=== PATIENT | male | born 1985 | race Caucasian/White ===

== ENCOUNTER 2023-02-11 11:17 | Observation (INO) | payer MEDICAID, SELFPAY ==
[2023-02-11 11:18] VITALS: BP 132/102; PULSE 68; RESP 18; TEMP 36.1; O2SAT 100; BMI 29.7
--- NOTE | 2023-02-11 11:55 | EX.ED.DYSGE1 ---
HPI <ADRIANNE Kowalski - Last Filed: 02/11/23 12:53> History of Present Illness Chief Complaint: Substance Abuse Narrative Narrative: Patient is a 38-year-old male with history of anxiety, depression, fentanyl abuse. Patient has been abusing fentanyl for multiple years however this last that has been 6 to 8 months. He was currently at a detox facility in [facility] however he left because he did not receive his daily medications. He is on Subutex, Seroquel, Lyrica. Patient was brought here by his PCPs office. Patient uses tobacco however denies any alcohol abuse, denies any other drug use, denies any marijuana or cocaine. He is here for detox. He denies any significant symptoms at this time. Patient last use was last evening. He usually snorts fentanyl twice a day. PFSH <ADRIANNE Kowalski - Last Filed: 02/11/23 12:53> [facility] Home Medications pregabalin 150 mg capsule (Lyrica) 150 mg PO TID 02/11/23 [History Last Taken Unknown] quetiapine 50 mg tablet (Seroquel) 50 mg PO QHS 02/11/23 [History Last Taken Unknown] Allergy/AdvReac Type Severity Reaction Status Date / Time No Known Allergies Allergy Verified 02/11/23 11:19 Social History Smoking Status: Current every day smoker tobacco type: cigarettes ROS <ADRIANNE Kowalski - Last Filed: 02/11/23 12:53> ROS ED ROS Narrative Constitutional: Negative for fever, chills, weight loss, weakness Eyes: Negative for vision loss, vision change, double vision ENT: Negative for any sore throat, ear pain, congestion Cardiovascular: Negative for any chest pain, tightness, palpitations Respiratory: Negative for any cough, sputum production, hemoptysis, dyspnea, dyspnea on exertion, orthopnea Gastrointestinal: Negative for any abdominal pain, vomiting, diarrhea, constipation, blood in stool, blood in vomit. Positive nausea : Negative for any urinary frequency, dysuria, retention, blood in urine Muscle skeletal: Negative for any muscle joint pain, stiffness, arthralgias, neck pain, back pain. Positive feeling of myalgias Neurological: Negative for any headache, syncope, numbness or tingling, dizziness Skin: Negative for any rashes, lumps, itching, abrasions, lacerations Psychiatric: Negative for any depression, anxiety, stress, suicidal ideation, homicidal ideation Hematologic: Negative for any easy bruising, excessive bruising, easy bleeding Allergies: Negative for any eczema, hives, rash EXAM <ADRIANNE Kowalski - Last Filed: 02/11/23 12:53> Physical Exam Narrative Exam Narrative: Vital signs reviewed. Patient appears generally well. Patient appears slightly anxious however is in no distress. HEET: Head normocephalic atraumatic, TMs clear bilaterally. Posterior pharynx is clear, moist mucous membranes. Nares clear bilaterally. Neck: Supple with no lymphadenopathy or tenderness. No signs of meningismus, negative jolt sign. Cardiac: Regular rate and rhythm no murmurs gallops or rubs, equal peripheral pulses bilaterally. Respiratory: Lungs clear to auscultation bilaterally. No chest tenderness. Abdomen: Soft, nontender, nondistended. No abdominal bruit or pulsatile masses. No hepatosplenomegaly Extremities: No peripheral edema, no signs of gross trauma or deformity. Active full range of motion of all extremities. Neuro: Cranial nerves II through XII intact, no focal neurological deficits. Skin: Clean dry and intact with no rash, purpura, petechiae, vesicles or pustules. Backs/flank: No CVA tenderness, no midline spinal tenderness, no deformity. Psych: Normal mood and affect. No SI, HI or acute psychosis. Const Vital Signs: 02/11/23 11:18 Temperature 97 F L Temperature Source Temporal Pulse Rate 68 Respiratory Rate 18 Blood Pressure 132/102 H Blood Pressure Mean 112 Pulse Ox 100 Oxygen Delivery Method Room Air Positive well nourished and well developed General Appearance ED: well developed <Dr. Albert Casillas, DO - Last Filed: 02/11/23 13:23> Physical Exam Const Vital Signs: 02/11/23 11:18 Temperature 97 F L Temperature Source Temporal Pulse Rate 68 Respiratory Rate 18 Blood Pressure 132/102 H Blood Pressure Mean 112 Pulse Ox 100 Oxygen Delivery Method Room Air MDM <ADRIANNE Kowalski - Last Filed: 02/11/23 12:53> [facility] Lab Data Labs: Laboratory Results - last 24 hr 02/11/23 02/11/23 02/11/23 11:50 11:50 11:50 WBC 7.9 RBC 5.44 Hgb 15.2 Hct 46.8 MCV 86.0 MCH 27.9 MCHC 32.5 RDW Std Deviation 41.6 RDW Coeff of Brandee 13.3 Plt Count 234 MPV 9.6 Immature Gran % (Auto) 1.000 H Neut % (Auto) 49.2 Lymph % (Auto) 41.0 Kimball % (Auto) 5.3 Eos % (Auto) 2.9 Baso % (Auto) 0.6 Absolute Neuts (auto) 3.9 Absolute Lymphs (auto) 3.24 Nucleated RBC % 0 Sodium 139 Potassium 3.5 Chloride 106 Carbon Dioxide 26.0 Anion Gap 7 BUN 15 Creatinine 0.94 Estim Creat Clear Calc 127.35 Est GFR (MDRD) Af Amer 116 Est GFR (MDRD) Non-Af 96 BUN/Creatinine Ratio 16.0 Glucose 123 H Calcium 9.1 Urine Opiates Screen POSITIVE H Urine Methadone Screen NEGATIVE Ur Barbiturates Screen NEGATIVE Ur Phencyclidine Scrn NEGATIVE Ur Amphetamines Screen NEGATIVE MDMA (Ecstasy) Screen POSITIVE H U Benzodiazepines Scrn POSITIVE H Urine Cocaine Screen POSITIVE H U Cannabinoids Screen NEGATIVE Ur Drug Screen Comment Ethyl Alcohol 02/11/23 12:55 WBC RBC Hgb Hct MCV MCH MCHC RDW Std Deviation RDW Coeff of Brandee Plt Count MPV Immature Gran % (Auto) Neut % (Auto) Lymph % (Auto) Kimball % (Auto) Eos % (Auto) Baso % (Auto) Absolute Neuts (auto) Absolute Lymphs (auto) Nucleated RBC % Sodium Potassium Chloride Carbon Dioxide Anion Gap BUN Creatinine Estim Creat Clear Calc Est GFR (MDRD) Af Amer Est GFR (MDRD) Non-Af BUN/Creatinine Ratio Glucose Calcium Urine Opiates Screen Urine Methadone Screen Ur Barbiturates Screen Ur Phencyclidine Scrn Ur Amphetamines Screen MDMA (Ecstasy) Screen U Benzodiazepines Scrn Urine Cocaine Screen U Cannabinoids Screen Ur Drug Screen Comment Ethyl Alcohol 5.0 Treatment and Re-Evaluation :: Patient appears generally well, patient appears nontoxic, vital signs are stable. Patient presents to the emergency department for detox from fentanyl. Patient states he uses fentanyl snorting twice a day. Patient has never been to this detox center. Patient was brought over by his PCPs office. He has been using fentanyl for last 6 to 8 months. Patient will receive basic laboratory eval as well as a urine drug screen. Patient at this time feels generally comfortable. He does feel slightly anxious. I did speak with the patient regarding the contract that he signed, as well as the ramifications if he does leave before treatment is finished. He verbally understands. Patient CBC, chemistries were unremarkable. Patient's toxicology revealed positive for opiates which he does snort fentanyl. However he was therefore ecstasy, benzodiazepines as well as cocaine. I did speak with hospitalist regarding admission. He is excepted. Patient stable for admission <Dr. Albert Casillas, DO - Last Filed: 02/11/23 13:23> MDM MDM Narrative Medical decision making narrative: I have personally performed a face to face assessment of the patient and have reviewed the HOSSEIN Note. I performed a substantive portion of the visit including all aspects of the following. My mckeon findings include: History: Patient presents requesting detox from opiates. Patient states he uses fentanyl. Patient states he snorts it. Patient denies any IV drug use. Patient denies any nausea or vomiting. Patient denies any tremors or palpitations. Patient denies any seizures. Patient states he uses 1/2 to 1 g/day. Patient states his last use was last evening. Patient denies any suicidal or homicidal ideations. Exam: Vital signs are stable. Patient is afebrile. Patient is in no acute distress. Oral mucosa is pink and moist. Neck is supple. Trachea is midline. There is no JVD or lymphadenopathy. Heart was regular rate and rhythm. Lungs are clear and equal bilaterally. Abdomen is soft. Bowel sounds are normal. There is no tenderness. Cranial nerves II through XII are intact. There are no focal motor or sensory deficits noted. Medical Decision Making: Basic screening labs will be obtained for medical clearance. CBC will be obtained to assess for leukocytosis and anemia. Basic metabolic profile will be obtained to assess for electrolyte abnormality and renal function. Urine tox screen will be obtained to assess for substance abuse. Serum alcohol level will be obtained to assess for alcohol intoxication. CBC was reviewed and was within normal limits. Basic metabolic profile was reviewed and was within normal limits. Serum alcohol level was reviewed and was normal at 5.0. Urine tox screen was reviewed and was positive for opiates, MDMA, cocaine, and benzodiazepines. Case was discussed with the hospitalist. He will admit the patient to his service for detox. Patient understood and was agreeable with the plan. All questions were answered. Lab Data Attestation: I reviewed the patient's lab results. Labs: Laboratory Results - last 24 hr 02/11/23 02/11/23 02/11/23 11:50 11:50 11:50 WBC 7.9 RBC 5.44 Hgb 15.2 Hct 46.8 MCV 86.0 MCH 27.9 MCHC 32.5 RDW Std Deviation 41.6 RDW Coeff of Brandee 13.3 Plt Count 234 MPV 9.6 Immature Gran % (Auto) 1.000 H Neut % (Auto) 49.2 Lymph % (Auto) 41.0 Kimball % (Auto) 5.3 Eos % (Auto) 2.9 Baso % (Auto) 0.6 Absolute Neuts (auto) 3.9 Absolute Lymphs (auto) 3.24 Nucleated RBC % 0 Sodium 139 Potassium 3.5 Chloride 106 Carbon Dioxide 26.0 Anion Gap 7 BUN 15 Creatinine 0.94 Estim Creat Clear Calc 127.35 Est GFR (MDRD) Af Amer 116 Est GFR (MDRD) Non-Af 96 BUN/Creatinine Ratio 16.0 Glucose 123 H Calcium 9.1 Urine Opiates Screen POSITIVE H Urine Methadone Screen NEGATIVE Ur Barbiturates Screen NEGATIVE Ur Phencyclidine Scrn NEGATIVE Ur Amphetamines Screen NEGATIVE MDMA (Ecstasy) Screen POSITIVE H U Benzodiazepines Scrn POSITIVE H Urine Cocaine Screen POSITIVE H U Cannabinoids Screen NEGATIVE Ur Drug Screen Comment Ethyl Alcohol 02/11/23 12:55 WBC RBC Hgb Hct MCV MCH MCHC RDW Std Deviation RDW Coeff of Brandee Plt Count MPV Immature Gran % (Auto) Neut % (Auto) Lymph % (Auto) Kimball % (Auto) Eos % (Auto) Baso % (Auto) Absolute Neuts (auto) Absolute Lymphs (auto) Nucleated RBC % Sodium Potassium Chloride Carbon Dioxide Anion Gap BUN Creatinine Estim Creat Clear Calc Est GFR (MDRD) Af Amer Est GFR (MDRD) Non-Af BUN/Creatinine Ratio Glucose Calcium Urine Opiates Screen Urine Methadone Screen Ur Barbiturates Screen Ur Phencyclidine Scrn Ur Amphetamines Screen MDMA (Ecstasy) Screen U Benzodiazepines Scrn Urine Cocaine Screen U Cannabinoids Screen Ur Drug Screen Comment Ethyl Alcohol 5.0 Discharge Plan Dx/Rx/DC Orders Clinical Impression: Opiate abuse, continuous, Polypharmacy, History of depression Disposition Disposition: Acute Care Hospital [facility]
[2023-02-11 12:17] LABS: Absolute Lymphocyte Count 3.24 X10^3/uL (0.83-4.51); Absolute Neutrophil Count 3.9 X10^3/uL (2.0-7.7); Basophil# 0.05 X10^3/uL; Basophil% 0.6 % (0-1); Eosinophil# 0.23 X10^3/uL; Eosinophils% 2.9 % (0-5); Hematocrit 46.8 % (40-54); Hemoglobin 15.2 g/dL (13.0-16.5); Lymphocyte # 3.24 X10^3/ul (0.83-4.51); Mean Corp Hgb Conc 32.5 g/dL (32-36); Mean Corpuscular Hgb 27.9 pg (27.0-32.0); Mean Platelet Vol. 9.6 fl (6.2-12.0); Monocyte# 0.42 X10^3/uL; Monocyte% 5.3 % (0-10); NRBC Flagged by Analyzer 0 % (0-5); Neutrophil # 3.89 X10^3/uL (2.7-7.7); Neutrophil % 49.2 % (47-70); Platelet Count 234 K/mm3 (150-450); RBC Distribution Width CV 13.3 % (11.6-14.6); RBC Distribution Width SD 41.6 fl (35.1-43.9); Red Blood Count 5.44 M/mm3 (4.6-6.2); White Blood Count 7.9 K/mm3 (4.4-11.0)
[2023-02-11 12:27] LABS: Anion Gap 7 (5-15); BUN 15 mg/dL (7-18); Calcium,Total 9.1 mg/dL (8.5-10.1); Chloride 106 mmol/L (98-107); Creatinine, Serum 0.94 mg/dL (0.70-1.30); EST Glomerular Filtration Rate 96 mL/min (>60); Est Glom Filt Rate - Afr Amer 116 mL/min (>60); Estimated Creatinine Clearance 127.35 ml/min; Glucose 123 mg/dL (74-106); Potassium 3.5 mmol/L (3.5-5.1); Sodium Level 139 mmol/L (136-145)
[2023-02-11 12:38] LABS: Amphetamine Urine VISTA NEGATIVE (<1000 ng/mL); Barbiturate Urine VISTA NEGATIVE (< 200 ng/mL); Benzodiazepine Urine VISTA POSITIVE (< 200 ng/mL); Cocaine Urine VISTA POSITIVE (< 300 ng/mL); Ecstacy Urine VISTA POSITIVE (< 500 ng/mL); Methadone Urine VISTA NEGATIVE (< 300 ng/mL); PCP Urine VISTA NEGATIVE (< 25 ng/mL); THC Urine VISTA NEGATIVE (< 50 ng/mL); Vista UDS pH Range 5
--- NOTE | 2023-02-11 12:57 | PCM.HP.STD ---
[facility] - General General Date of Admission: 02/11/23 Date of Service: 02/11/23 Chief Complaint: Came to ED for opioid detox. Polysubstance use. HPI Narrative LIZZIE CASSIDY, is a 38 M with history of polysubstance use, fentanyl, benzodiazepine, crack cocaine, smoking cigarettes came to ED for detox help. Patient currently denies any withdrawal symptoms including tremor, sweating, yawning, hallucinations but he has mild pressured speech. He is not having abnormal behavior. Patient states he snorts 4 to 5 g of fentanyl. Prior to 1616 he was using IV fentanyl and opioids. Denies history of hep C hep B and HIV. Patient also admits that he uses crack cocaine once or twice a month. He takes benzodiazepines, Xanax 2 to 4 mg once or twice a week. He states he does not withdrawal from benzodiazepine. Smokes cigarettes 1 pack/day. Past medical history: ADHD anxiety and depression: Patient on Lyrica and quetiapine. He is also on Subutex. Denies history of hypertension diabetes mellitus. Social history: Polysubstance use as mentioned above. Family history: His father was alcoholic. His elder sister and younger sister both have substance use history. [facility] Home Medications pregabalin 150 mg capsule (Lyrica) 150 mg PO TID 02/11/23 [History Last Taken Unknown] quetiapine 50 mg tablet (Seroquel) 50 mg PO QHS 02/11/23 [History Last Taken Unknown] Allergy/AdvReac Type Severity Reaction Status Date / Time No Known Allergies Allergy Verified 02/11/23 11:19 Social History Smoking Status: Current every day smoker tobacco type: cigarettes ROS ROS Narrative Constitutional: Fast speech. HEENT: Reports systems reviewed and no addt'l complaints, except as documented Respiratory/Chest: Denies chest pain, shortness of breath at rest or with exertion CVS: Denies IA/coronary artery disease. Gastrointestinal: Denies coffee ground emesis, hematemesis or vomiting Genitourinary: Denies burning urination or new urinary tract symptoms Musculoskeletal: Denies joint pain and limited range of motion Neurologic: Denies seizure-like activity. No abnormal movements. No stroke like symptoms. Psychiatry: ADHD, anxiety and depression skin: No ulcer. No rash Endocrinology: Reports systems reviewed and no addt'l complaints, except as documented Hematologic/Lymphatic: Reports systems reviewed and no addt'l complaints, except as documented Rest 14 ROS are negative except as mentioned in HPI Vital Signs Vital Signs Vital Signs: 02/11/23 11:18 Temperature 97 F L Temperature Source Temporal Pulse Rate 68 Respiratory Rate 18 Blood Pressure 132/102 H Blood Pressure Mean 112 Pulse Ox 100 Oxygen Delivery Method Room Air Weight Weight: 238 lb Body Mass Index (BMI) 29.7 Physical Exam Narrative Physical exam General: Alert, Oriented x3, Cooperative HEENT: Mild redness along the floor of the nasal cavity. Atraumatic, PERRLA, EOMI, Normocephalic Oral: Oral mucosa dry. No Gingival or Mucosal Lesions/ Ulcerations Neck: Supple, No JVD, Negative Carotid Bruits Lungs: Air entry diminished in bilateral lung bases. No crepitation/rhonchi Cardiovascular: Regular rate, Regular Rhythm, Normal S1, Normal S2, No murmurs Abdomen: Bowel Sounds Present, Soft, Non Tender, Non-Distended : No renal angle tenderness. No suprapubic tenderness. Extremities: No edema, Capillary Refill Less than 3 Seconds Skin: No rashes, No breakdown Musculoskeletal: No Tenderness to Palpation of Joints or Extremities. ROM intact. Neurological: Cranial nerves II-XII grossly intact, DTR 2+/4 and Symmetrical, Neuro grossly intact Psych/Mental Status: Pressured speech. Mild restlessness. Results Lab / Micro Data Result Diagrams: 02/11/23 11:50 02/11/23 11:50 Labs: Laboratory Results - last 24 hr 02/11/23 11:50: WBC 7.9, RBC 5.44, Hgb 15.2, Hct 46.8, MCV 86.0, MCH 27.9, MCHC 32.5, RDW Std Deviation 41.6, RDW Coeff of Brandee 13.3, Plt Count 234, MPV 9.6, Immature Gran % (Auto) 1.000 H, Neut % (Auto) 49.2, Lymph % (Auto) 41.0, Latimer % (Auto) 5.3, Eos % (Auto) 2.9, Baso % (Auto) 0.6, Absolute Neuts (auto) 3.9, Absolute Lymphs (auto) 3.24, Nucleated RBC % 0 02/11/23 11:50: Sodium 139, Potassium 3.5, Chloride 106, Carbon Dioxide 26.0, Anion Gap 7, BUN 15, Creatinine 0.94, Estim Creat Clear Calc 127.35, Est GFR (MDRD) Af Amer 116, Est GFR (MDRD) Non-Af 96, BUN/Creatinine Ratio 16.0, Glucose 123 H, Calcium 9.1 02/11/23 11:50: Urine Opiates Screen POSITIVE H, Urine Methadone Screen NEGATIVE, Ur Barbiturates Screen NEGATIVE, Ur Phencyclidine Scrn NEGATIVE, Ur Amphetamines Screen NEGATIVE, MDMA (Ecstasy) Screen POSITIVE H, U Benzodiazepines Scrn POSITIVE H, Urine Cocaine Screen POSITIVE H, U Cannabinoids Screen NEGATIVE, Ur Drug Screen Comment Assessment & Plan Assessment/Plan (1) Opiate abuse, continuous: PLAN: Plan This 30-year-old gentleman is being admitted for medical stabilization of acute opioid withdrawal syndrome with history of chronic opioid use disorder. 1. Acute opioid withdrawal syndrome with history of chronic opioid use disorder, relapse, dependence and tolerance: Patient was on the [facility] detox facility and he relapsed. Patient is being admitted to [facility] floor for medical stabilization of withdrawal symptoms. CINA and COWS monitoring. The patient is started on buprenorphine along with other adjunctive medications as needed for medical stabilization as per order set of opioid withdrawal syndrome.Patient also on hydroxyzine, gabapentin as needed ordered. consumer marketing manager consult. His home medications quetiapine and pregabalin continued. Liver chemistry ordered. 2. Chronic benzodiazepine use disorder and dependence: Patient is still does not withdrawal from benzodiazepines. Usually is Xanax 2 to 4 mg once or twice a week. Monitor clinically for benzodiazepine withdrawal including flashbacks, hallucination, seizures, weird dreams/nightmares. 3. Other polysubstance use disorder including crack cocaine and MDMA: U tox positive for opioids, ecstasy, benzodiazepine and cocaine. Patient counseled to quit polysubstance use. 4. Chronic nicotine use/cigarette smoking: Patient is smokes a pack per day since age of 18. Nicotine transdermal patch. VTE prophylaxis low risk: Active ambulation encouraged. Advance directive/CODE STATUS: Patient does not have advanced directive/living will. Full code verified. Laboratory Results 02/11/23 11:50: WBC 7.9, RBC 5.44, Hgb 15.2, Hct 46.8, MCV 86.0, MCH 27.9, MCHC 32.5, RDW Std Deviation 41.6, RDW Coeff of Brandee 13.3, Plt Count 234, MPV 9.6, Immature Gran % (Auto) 1.000 H, Neut % (Auto) 49.2, Lymph % (Auto) 41.0, Latimer % (Auto) 5.3, Eos % (Auto) 2.9, Baso % (Auto) 0.6, Absolute Neuts (auto) 3.9, Absolute Lymphs (auto) 3.24, Nucleated RBC % 0 02/11/23 11:50: Sodium 139, Potassium 3.5, Chloride 106, Carbon Dioxide 26.0, Anion Gap 7, BUN 15, Creatinine 0.94, Estim Creat Clear Calc 127.35, Est GFR (MDRD) Af Amer 116, Est GFR (MDRD) Non-Af 96, BUN/Creatinine Ratio 16.0, Glucose 123 H, Calcium 9.1 02/11/23 11:50: Urine Opiates Screen POSITIVE H, Urine Methadone Screen NEGATIVE, Ur Barbiturates Screen NEGATIVE, Ur Phencyclidine Scrn NEGATIVE, Ur Amphetamines Screen NEGATIVE, MDMA (Ecstasy) Screen POSITIVE H, U Benzodiazepines Scrn POSITIVE H, Urine Cocaine Screen POSITIVE H, U Cannabinoids Screen NEGATIVE, Ur Drug Screen Comment 02/11/23 11:50: Total Bilirubin Pending, Direct Bilirubin Pending, AST Pending, ALT Pending, Alkaline Phosphatase Pending, Total Protein Pending, Albumin Pending 02/11/23 12:55: Ethyl Alcohol 5.0 Charges/Coding Visit Charges Inpatient E&M: 13898 Init Hosp L3
[2023-02-11 13:26] LABS: AST(SGOT) 12 U/L (15-37); Alanine Aminotransfer ALT/SGPT 21 U/L (16-61); Albumin, Serum 3.7 g/dL (3.2-5.0); Alkaline Phosphatase 67 U/L (45-117); Globulin 3.8 g/dL (2.2-4.2); Protein, Total 7.5 g/dL (6.4-8.2)
[2023-02-11 13:53] VITALS: BP 121/90; PULSE 68; RESP 18; TEMP 35.9; O2SAT 100
[2023-02-11 14:27] VITALS: BP 125/85; PULSE 70; RESP 16; TEMP 36.7; O2SAT 94
[2023-02-11 14:58] VITALS: BMI 29.5
[2023-02-11] MEDS: Ibuprofen 600 MG Tablet PO (15:47)
[2023-02-11] MEDS: Methocarbamol 750 MG Tablet 1500 MG PO (15:47)
[2023-02-11] MEDS: Pregabalin 75 MG Capsule 150 MG PO ×2 (16:01→21:37)
[2023-02-11 17:13] LABS: International Normalized Ratio 0.9; Prothrombin Time (Protime)PT. 12.1 SECONDS (11.7-14.9)
[2023-02-11] MEDS: QUEtiapine 25 MG Tablet 50 MG PO (21:37)
[2023-02-11 21:53] VITALS: BP 117/82; PULSE 57; RESP 14; TEMP 36.3; O2SAT 98
[2023-02-11] MEDS: Dicyclomine 10 MG Capsule 20 MG PO (22:00)
[2023-02-11] MEDS: Buprenorphine HCl 2 MG TAB.SUBL SL (22:00)
[2023-02-12 02:00] VITALS: BP 132/90; PULSE 60; RESP 14; TEMP 36.4; O2SAT 100
[2023-02-12] MEDS: Methocarbamol 750 MG Tablet 1500 MG PO ×2 (02:45→10:56)
[2023-02-12] MEDS: Gabapentin 300 MG Capsule PO ×2 (02:45→10:56)
[2023-02-12] MEDS: cloNIDine HCl 0.1 MG Tablet PO ×2 (02:46→10:56)
[2023-02-12] MEDS: Buprenorphine HCl 2 MG TAB.SUBL SL ×3 (05:40→21:55)
[2023-02-12] MEDS: Pregabalin 75 MG Capsule 150 MG PO ×3 (05:41→21:55)
[2023-02-12 10:00] VITALS: BP 129/88; PULSE 62; RESP 17; TEMP 36.9; O2SAT 97
--- NOTE | 2023-02-12 11:40 | ADDICTION ---
This senior grant writer met with client for [facility] admit. Client is a 38 year old male from [facility] who was admitted 02/11/23 from [facility] ER. He reports he was at [facility] last week but left AMA. He is prescribed Subutex 8 mg BID through his PCP (Bianca Ibarra CNP). Client reports his PCP office transported him to the ER, however it appears he might have been transferred by ambulance.He reports he is prescribed Subutex by his PCP Ana Paula Ibarra CNP. Most recent use is daily use of Fentanyl (approx 1/2-1 gm daily, intranasally), he was previous using methamphetamines with fentanyl, has stopped meth. last use was approx 4 months ago. He reports his PCP has encouraged him to complete treatment. Client reports he lives with his mother who is supportive of his sobriety. Gustavo refuses referral for treatment, states he completed treatment about a year ago, he refuses residential treatment. Client does not feel his PCP will have him do more treatment. He reports his PCP office will pick him up/transport client home. LAY completed for [facility]. Discharge plan completed. Will notify [facility] coordinator of admission.
--- NOTE | 2023-02-12 13:13 | PCM.PN.HOSP ---
Reason for Visit Reason for Visit: Diagnoses Opioid abuse, uncomplicated (02/11/23) Subjective Subjective Follow-up for opioid and benzodiazepine withdrawal syndrome Objective Data Objective Data Vital Signs: Vital Signs Temp Pulse Resp BP Pulse Ox O2 Del Method 97.6 F L 60 14 132/90 H 100 Room Air 02/12/23 02:00 02/12/23 02:00 02/12/23 02:00 02/12/23 02:00 02/12/23 02:00 02/12/23 02:00 Oxygen Delivery Method Room Air Weight: 235 lb 11.2 oz Body Mass Index (BMI) 29.5 Intake & Output: Intake and Output for Last 24 Hours 02/10/23 02/11/23 02/12/23 23:59 23:59 23:59 Intake Total 350 / 350 Balance 350 / 350 Lab / Micro Data Result Diagrams: 02/11/23 11:50 02/11/23 11:50 Labs: Laboratory Results - last 24 hr 02/11/23 11:50: Total Bilirubin 0.20, Direct Bilirubin 0.10, AST 12 L, ALT 21, Alkaline Phosphatase 67, Total Protein 7.5, Albumin 3.7, Globulin 3.8 02/11/23 12:55: Ethyl Alcohol 5.0 02/11/23 16:33: PT 12.1, INR 0.9 Physical Exam Narrative Patient is states he could not sleep yesterday evening and night. He has been using benzodiazepine 2 to 4 mg Xanax for last 6 days he admitted today although in the beginning yesterday yesterday he was using twice a week and he does not recall. He also has restless leg, anxiety feels tired and yawning but could not sleep. Denies hallucination delusion, illusion weird dreams or nightmares. No diarrhea. Physical exam General: Awake, tired, oriented x3, Cooperative HEENT: Mild redness along the floor of the nasal cavity. Atraumatic, PERRLA, EOMI, Normocephalic Oral: Oral mucosa dry. No Gingival or Mucosal Lesions/ Ulcerations Neck: Supple, No JVD, Negative Carotid Bruits Lungs: Air entry diminished in bilateral lung bases. No crepitation/rhonchi Cardiovascular: Regular rate, Regular Rhythm, Normal S1, Normal S2, No murmurs Abdomen: Bowel Sounds Present, Soft, Non Tender, Non-Distended : No renal angle tenderness. No suprapubic tenderness. Extremities: No edema, Capillary Refill Less than 3 Seconds Skin: No rashes, No breakdown Musculoskeletal: No Tenderness to Palpation of Joints or Extremities. ROM intact. Neurological: Cranial nerves II-XII grossly intact, DTR 2+/4 and Symmetrical, Neuro grossly intact Psych/Mental Status: Pressured speech. Restless legs. Assessment & Plan Assessment/Plan (1) Opiate abuse, continuous: PLAN: Plan This 30-year-old gentleman is being admitted for medical stabilization of acute opioid withdrawal syndrome with history of chronic opioid use disorder. 1. Acute opioid withdrawal syndrome with history of chronic opioid use disorder, relapse, dependence and tolerance: Patient was on the [facility] detox facility and he relapsed. Patient is being admitted to [facility] floor for medical stabilization of withdrawal symptoms. CINA and COWS monitoring. The patient is started on buprenorphine along with other adjunctive medications as needed for medical stabilization as per order set of opioid withdrawal syndrome.Patient also on hydroxyzine, gabapentin as needed ordered. district manager primary care sales consult. His home medications quetiapine and pregabalin continued. Liver chemistry ordered. 02/12: Liver chemistry normal limit ALT 12 low. PT/INR in normal range. Patient denies chronic alcohol use. No right upper quadrant tenderness 2. Acute benzodiazepine withdrawal with chronic benzodiazepine use disorder and dependence: Patient is still does not withdrawal from benzodiazepines. Usually is Xanax 2 to 4 mg once or twice a week. Monitor clinically for benzodiazepine withdrawal including flashbacks, hallucination, seizures, weird dreams/nightmares. 6: Patient has benzodiazepine withdrawal syndrome with insomnia, restlessness leg syndrome although he did not had seizure hallucinations or abnormal behavior. Started on patient on phenobarbital based order set along with other adjunctive medications as needed for alcohol withdrawal symptom control. CIWA monitor. For benzodiazepine withdrawal. Discussed with the patient. 3. Other polysubstance use disorder including crack cocaine and MDMA: U tox positive for opioids, ecstasy, benzodiazepine and cocaine. Patient counseled to quit polysubstance use. 4. Chronic nicotine use/cigarette smoking: Patient is smokes a pack per day since age of 18. Nicotine transdermal patch. VTE prophylaxis low risk: Active ambulation encouraged. Advance directive/CODE STATUS: Patient does not have advanced directive/living will. Full code verified. Laboratory Results 02/11/23 11:50: Total Bilirubin 0.20, Direct Bilirubin 0.10, AST 12 L, ALT 21, Alkaline Phosphatase 67, Total Protein 7.5, Albumin 3.7, Globulin 3.8 02/11/23 16:33: PT 12.1, INR 0.9 Charges/Coding Visit Charges Inpatient E&M: 90520 Subs Hosp L2
[2023-02-12] MEDS: Phenobarbital 32.4 MG Tablet 64.8 MG PO ×3 (14:06→21:55)
--- NOTE | 2023-02-12 16:50 | CASEMGMT ---
Social Work Note SW met with patient and introduced herself and role as [facility] Head Of Transport Logistics. Patient lying in hospital bed and agreeable to speak with SW. SW assisted patient in completing Social Determinants of Health assessment. Patient reports living with his mother with no concerns nor need to move at this time. Patient reports concerns regarding transportation as he currently utilized his insurance for appointments or contacts his family or friends for rides. SW provided patient with a list of transportation resources for [facility] and encouraged him to contact S to discuss their transportation program for local transit. SW also informed patient he can call 211 to inquire about resources and they will provide him with information on local resources as well. Patient was receptive towards information and reports no other needs at this time. Emmy Rosario MSW, BAL
[2023-02-12 17:52] VITALS: BP 129/81; PULSE 61; RESP 17; TEMP 36; O2SAT 98
[2023-02-12] MEDS: QUEtiapine 25 MG Tablet 50 MG PO (21:55)
[2023-02-12 22:00] VITALS: BP 114/76; PULSE 60; RESP 16; TEMP 36.6; O2SAT 96
[2023-02-13] MEDS: Phenobarbital 32.4 MG Tablet 64.8 MG PO ×6 (01:44→22:06)
[2023-02-13 02:00] VITALS: BP 119/81; PULSE 60; RESP 16; TEMP 36.6; O2SAT 96
[2023-02-13 05:45] VITALS: BP 128/89; PULSE 57; RESP 16; TEMP 36.5; O2SAT 97
[2023-02-13] MEDS: Pregabalin 75 MG Capsule 150 MG PO ×3 (05:46→22:06)
[2023-02-13] MEDS: Buprenorphine HCl 2 MG TAB.SUBL SL ×3 (05:46→22:06)
[2023-02-13 08:41] VITALS: BP 128/90; PULSE 60; RESP 18; TEMP 36.6; O2SAT 100
[2023-02-13] MEDS: hydrOXYzine PAM 25 MG Capsule 50 MG PO ×2 (09:50→17:57)
[2023-02-13] MEDS: Methocarbamol 750 MG Tablet 1500 MG PO (09:50)
[2023-02-13] MEDS: Gabapentin 300 MG Capsule PO (13:11)
[2023-02-13 13:40] VITALS: BP 124/88; PULSE 62; RESP 18; TEMP 36.6; O2SAT 100
--- NOTE | 2023-02-13 14:12 | PCM.PN.HOSP ---
Reason for Visit Reason for Visit: Diagnoses Opioid abuse, uncomplicated (02/11/23) Subjective Subjective Follow-up for acute opioid and benzodiazepine withdrawal syndrome. Objective Data Objective Data Vital Signs: Vital Signs Temp Pulse Resp BP Pulse Ox O2 Del Method 97.8 F 62 18 124/88 H 100 Room Air 02/13/23 13:40 02/13/23 13:40 02/13/23 13:40 02/13/23 13:40 02/13/23 13:40 02/13/23 13:40 Oxygen Delivery Method Room Air Weight: 235 lb 11.2 oz Body Mass Index (BMI) 29.5 Intake & Output: Intake and Output for Last 24 Hours 02/11/23 02/12/23 02/13/23 23:59 23:59 23:59 Intake Total 350 / 350 Balance 350 / 350 Lab / Micro Data Result Diagrams: 02/11/23 11:50 02/11/23 11:50 Physical Exam Narrative Patient feels more comfortable and slept well yesterday night after starting phenobarbitone. Denies hallucination delusion, illusion weird dreams or nightmares. No diarrhea. Physical exam General: Awake, tired, oriented x3, Cooperative HEENT: Atraumatic, PERRLA, EOMI, Normocephalic Oral: Oral mucosa dry. No Gingival or Mucosal Lesions/ Ulcerations Neck: Supple, No JVD, Negative Carotid Bruits Lungs: Air entry diminished in bilateral lung bases. No crepitation/rhonchi Cardiovascular: Regular rate, Regular Rhythm, Normal S1, Normal S2, No murmurs Abdomen: Bowel Sounds Present, Soft, Non Tender, Non-Distended : No renal angle tenderness. No suprapubic tenderness. Extremities: No edema, Capillary Refill Less than 3 Seconds Skin: No rashes, No breakdown Musculoskeletal: No Tenderness to Palpation of Joints or Extremities. ROM intact. Neurological: Cranial nerves II-XII grossly intact, DTR 2+/4 and Symmetrical, Neuro grossly intact Psych/Mental Status: Flat affect. Well rested. No agitation. Assessment & Plan Assessment/Plan (1) Opiate abuse, continuous: PLAN: Plan This 30-year-old gentleman is being admitted for medical stabilization of acute opioid withdrawal syndrome with history of chronic opioid use disorder. 1. Acute opioid withdrawal syndrome with history of chronic opioid use disorder, relapse, dependence and tolerance: Patient was on the [place] in detox facility and he relapsed. Patient is being admitted to [facility] floor for medical stabilization of withdrawal symptoms. CINA and COWS monitoring. The patient is started on buprenorphine along with other adjunctive medications as needed for medical stabilization as per order set of opioid withdrawal syndrome.Patient also on hydroxyzine, gabapentin as needed ordered. process development manager consult. His home medications quetiapine and pregabalin continued. Liver chemistry ordered. 02/12: Liver chemistry normal limit ALT 12 low. PT/INR in normal range. Patient denies chronic alcohol use. No right upper quadrant tenderness 2. Acute benzodiazepine withdrawal with chronic benzodiazepine use disorder and dependence: Patient is still does not withdrawal from benzodiazepines. Usually is Xanax 2 to 4 mg once or twice a week. Monitor clinically for benzodiazepine withdrawal including flashbacks, hallucination, seizures, weird dreams/nightmares. 02/12: Patient has benzodiazepine withdrawal syndrome with insomnia, restlessness leg syndrome although he did not had seizure hallucinations or abnormal behavior. Started on patient on phenobarbital based order set along with other adjunctive medications as needed for alcohol withdrawal symptom control. CIWA monitor. For benzodiazepine withdrawal. Discussed with the patient. 02/13: Patient responded well with phenobarbital. Continue as per taper. 3. Other polysubstance use disorder including crack cocaine and MDMA: U tox positive for opioids, ecstasy, benzodiazepine and cocaine. Patient counseled to quit polysubstance use. 4. Chronic nicotine use/cigarette smoking: Patient is smokes a pack per day since age of 18. Nicotine transdermal patch. VTE prophylaxis low risk: Active ambulation encouraged. Advance directive/CODE STATUS: Patient does not have advanced directive/living will. Full code verified. Laboratory Results 02/11/23 11:50: Total Bilirubin 0.20, Direct Bilirubin 0.10, AST 12 L, ALT 21, Alkaline Phosphatase 67, Total Protein 7.5, Albumin 3.7, Globulin 3.8 02/11/23 16:33: PT 12.1, INR 0.9 Charges/Coding Visit Charges Inpatient E&M: 86608 Subs Hosp L2
[2023-02-13 22:00] VITALS: BP 118/75; PULSE 65; RESP 16; TEMP 36.7; O2SAT 98
[2023-02-13] MEDS: QUEtiapine 25 MG Tablet 50 MG PO (22:06)
[2023-02-14 01:47] VITALS: BP 106/74; PULSE 62; RESP 16; TEMP 36.6; O2SAT 96
[2023-02-14] MEDS: Phenobarbital 32.4 MG Tablet 64.8 MG PO ×3 (01:47→09:53)
[2023-02-14] MEDS: Pregabalin 75 MG Capsule 150 MG PO (05:41)
[2023-02-14 07:55] VITALS: BP 111/68; PULSE 73; RESP 16; TEMP 36.6; O2SAT 97
[2023-02-14] MEDS: Folic Acid 1 MG Tablet PO (08:07)
[2023-02-14] MEDS: Thiamine Hydrochloride 100 MG Tablet PO (08:12)
[2023-02-14] MEDS: Buprenorphine HCl 2 MG TAB.SUBL SL (09:53)
--- NOTE | 2023-02-14 11:16 | DCINST_ITS ---
Discharge Instructions Diet Discharge Diet: No restrictions Activity Discharge Activity: Return to Normal Activity Follow Up Care Test Results: Test results from this visit will be discussed in further detail at your follow- up appointment, if applicable. Discharge Plan Admission Admit Date/Time: 02/11/23 12:48 Primary Reason for Your Visit: Desire for detox Attending Provider: Kenyatta Malik Primary Care Provider: Care Physician,No Primary Consulting Providers: Mckinley Riley Instructions Patient Instructions: Addiction: Getting Help, Addiction: Your Treatment Options, Addiction Recovery Counseling Additional Instructions / Restrictions: - It is strongly advised that you follow-up closely with your outpatient addiction program -You have indicated that you will continue buprenorphine with your outpatient provider, would recommend calling them upon discharge to discuss further treatment and prescriptions -Please call your primary care physician's office upon discharge to schedule hospital follow-up appointment - It is strongly advised that you refrain from any substance use. Please call [facility] located at [address] [place] [address] (ph [phone]) if you are interested in further resources Discharge Orders/Prescriptions Prescriptions: Continued pregabalin [Lyrica] 150 mg Capsule 150 mg PO TID quetiapine [Seroquel] 50 mg Tablet 50 mg PO QHS buprenorphine HCl 8 mg tablet, sublingual 8 mg SUBLINGUAL BID Label Comments: DISSOLVE 1 TABLET UNDER THE TONGUE TWICE DAILY Referrals / Follow Up: Care Physician,No Primary [Primary Care Provider] - [facility] Doctor,Out of [Non-Staff] - Within 1 Week Disposition Disposition (needs filled in before D/C Order can be placed): Home, Self Care
--- NOTE | 2023-02-14 11:17 | DS.PCM_ITS ---
Providers Date of Admission: 02/11/23 Primary Care Physician: Brigitte Primary Care Phys Reason For Visit: POLYSUBSTANCE USE DISORDER Diagnosis Discharge Diagnosis (1) Opiate abuse, continuous: Status: Acute Code(s): F11.10 - Opioid abuse, uncomplicated Plan #Acute opioid withdrawal syndrome with history of chronic opioid use disorder, relapse, dependence and tolerance #Acute benzodiazepine withdrawal with chronic benzodiazepine use disorder and dependence #?Other polysubstance use disorder including crack cocaine and MDMA #Chronic nicotine use/cigarette smoking Medications at Discharge Home Medications buprenorphine HCl 8 mg sublingual tablet 8 mg sublingual BID withdraw 02/11/23 pregabalin 150 mg capsule (Lyrica) 150 mg PO TID anxiety, pain 02/11/23 quetiapine 50 mg tablet (Seroquel) 50 mg PO QHS sleep 02/11/23 Hospital Course Summary of Care Provided Minutes Spent on Discharge: 20 Hospital Course: LIZZIE CASSIDY, is a 38 M with history of polysubstance use, fentanyl, benzodiazepine, crack cocaine, smoking cigarettes came to ED for detox help. He underwent phenobarb and Subutex tapers and was doing very well felt ready for discharge, still had another day on his phenobarb taper however he was doing very well with no symptoms given the long half-life suspect he will do well. Discharged to follow-up outpatient for further addiction services Physical Exam Narrative General: Alert, oriented, no apparent distress HEENT: Atraumatic, normocephalic Eyes: extraocular movements grossly intact Neck: Supple Respiratory: normal respiratory effort Cardiovascular: no edema appreciated GI: nondistended Extremities: Moving all extremities Neuro: No overt focal neurological deficits Psych: Cooperative Weight / BMI Weight Weight: 106.912 kg Body Mass Index (BMI) 29.5 ABG / Lab / Microbiology Data Result Diagrams: 02/11/23 11:50 02/11/23 11:50 D/C Instructions Discharge Diet: No restrictions Meaningful Use Info Meaningful Use Diagnoses (Choose all that apply): None applicable Discharge Plan Admission Admit Date/Time: 02/11/23 12:48 Primary Reason for Your Visit: Desire for detox Attending Provider: Kenyatta Malik Primary Care Provider: Care Physician,No Primary Consulting Providers: Mckinley Riley Instructions Patient Instructions: Addiction: Getting Help, Addiction: Your Treatment Options, Addiction Recovery Counseling Additional Instructions / Restrictions: - It is strongly advised that you follow-up closely with your outpatient addiction program -You have indicated that you will continue buprenorphine with your outpatient provider, would recommend calling them upon discharge to discuss further treatment and prescriptions -Please call your primary care physician's office upon discharge to schedule hospital follow-up appointment - It is strongly advised that you refrain from any substance use. Please call [facility] located at [address] [place] [id number] (ph [phone]) if you are interested in further resources Discharge Orders/Prescriptions Prescriptions: Continued pregabalin [Lyrica] 150 mg Capsule 150 mg PO TID quetiapine [Seroquel] 50 mg Tablet 50 mg PO QHS buprenorphine HCl 8 mg tablet, sublingual 8 mg SUBLINGUAL BID Label Comments: DISSOLVE 1 TABLET UNDER THE TONGUE TWICE DAILY Referrals / Follow Up: Care Physician,No Primary [Primary Care Provider] - [facility] Doctor,Out of [Non-Staff] - Within 1 Week Disposition Disposition (needs filled in before D/C Order can be placed): Home, Self Care Charges/Coding Visit Charges Inpatient E&M: 10270 Disch Hosp
== END 2023-02-14 13:15 | disposition home or self-care (01) | DRG 773 ==
LOC: ED 12:53 → MS3 02-14 04:18
PROVIDERS: Nurse Practitioner; Admitting Provider Internal Medicine; Emergency Provider Emergency Medicine; Visit Provider Internal Medicine
DX: F11.23 Opioid dependence with withdrawal (principal); F13.939 Sedative, hypnotic or anxiolytic use, unspecified with withdrawal, unspecified; F14.90 Cocaine use, unspecified, uncomplicated; F41.9 Anxiety disorder, unspecified; F17.210 Nicotine dependence, cigarettes, uncomplicated; F32.A Depression, unspecified; Z79.899 Other long term (current) drug therapy
CPT/HCPCS: 36415; 80048; 80076; 80307; 82077; 85025; 85610; 99221; 99282; G0378

== ENCOUNTER 2023-06-03 15:23 | Emergency (ER) | payer MEDICAID, SELFPAY ==
[2023-06-03 15:24] VITALS: BP 121/93; PULSE 60; RESP 16; TEMP 36.4; O2SAT 100; BMI 27.5
--- NOTE | 2023-06-03 18:10 | ED.RN ---
pt opting to leave at this time.
== END 2023-06-03 18:00 | disposition left against medical advice (07) ==
LOC: ED 19:17
DX: Z53.21 Procedure and treatment not carried out due to patient leaving prior to being seen by health care provider (principal)